=== PATIENT | female | born 1980 | race Caucasian/White ===

== ENCOUNTER 2017-01-05 18:36 | Emergency (ER) | payer MEDICAID ==
--- NOTE | 2017-02-05 21:25 | ER ---
ADMIT: 01/05/2017 RM/LOC: ER [facility] MR#: [id number] [id number] [place], [place] [address] JESUS MANUEL OSORIO [address] [place] [address] Emergency Room Report SEX: F AGE: 36 : 1980 DATE: 01/05/2017 CHIEF COMPLAINT: Toothache. HISTORY OF PRESENT ILLNESS: This is a pleasant 36-year-old female, who presents with right lower jaw pain for the past 2 days. The patient states she has a significant history of generalized tooth decay. She states last year she was seen in [facility] and had her entire upper maxillary teeth removed and replaced with prosthetics. The patient states over the past few days she has had increasing pain and swelling around her last remaining tooth on her lower right jaw. The patient sates this is worsened with heat, cold, and chewing. She believes this problem is getting worse. She has been using Excedrin and ibuprofen as needed with little relief in her pain. The patient states she is currently trying to get into see her dentist at [facility], but is having difficulty with the payment. The patient denies any fever, sore throat, runny nose, congestion, or cough. She does admit to some right-sided ear pain and ear ache. COURSE IN THE EMERGENCY ROOM: The patient was seen and examined her lower right tooth #30 had areas of exudates about the base as well as significant sensitivity to both manipulation of the gum as well as palpation of the jawline. There was no significant lymphadenopathy or evidence of extending infection. The patient overall appeared well. I did stress her the importance of getting into see her dentist to resolve this problem as soon as possible. She was provided with a script for [place] 3/325, 1 to 2 tablets p.o. every4 to 6 hours as needed for pain #10. She was also started on Augmentin 875 one tablet b.i.d. for 7 days as there was evidence of some infection about the tooth. Plan was discussed with the patient. The patient agreed to schedule appointment with dentist as soon as possible. She was stable at time of discharge. OTILIA Torres / Luis Manuel Wilcox MD / jamie JOB #: [id number] CC: Luis Manuel Wiclox MD, Attending Physician Geovnai Taylor MD, Family Physician
== END 2017-01-05 19:10 | disposition home or self-care (01) ==
LOC: ER 18:36
DX: K08.89 Other specified disorders of teeth and supporting structures (principal); Z88.2 Allergy status to sulfonamides; Z79.899 Other long term (current) drug therapy

== ENCOUNTER 2017-02-17 11:59 | Emergency (ER) | payer MEDICAID ==
--- NOTE | 2017-02-17 14:22 | ER ---
ADMIT: 02/17/2017 RM/LOC: ER [facility] MR#: [id number] [address] [facility] [address] [place], [place] [address] JESUS MANUEL OSORIO [address] [place] [address] Emergency Room Report SEX: F AGE: 36 : 1980 DATE: 02/17/2017 TIME: 1159 hours. Please refer to my T-sheet for complete H and P. Briefly, the patient is a 36-year-old who comes in with sore throat, chest discomfort, cough, nausea, kind of plethora of complaints. She rates it 6/10. It has been bothering her just today. PHYSICAL EXAMINATION: VITAL SIGNS: Blood pressure 108/70, pulse 75, respirations 16, temp 96.8, and sat 99%. GENERAL: She is in no acute distress. HEENT: Mild pharyngeal erythema. NECK: Soft, supple. No meningismus. LUNGS: Clear. HEART: Regular. ABDOMEN: Soft. SKIN: No rash. EMERGENCY DEPARTMENT COURSE: EKG was sinus rhythm, no hyperacute changes. Rate was 71. I had a long discussion with her, she is ready for discharge. ASSESSMENT: 1. Viral syndrome. 2. Nicotine abuse. PLAN: Fluids. Return if worse. Stop smoking. [id number]-[id number] Benadryl or Claritin. Follow up with Dr. Taylor. Jarett Willams MD/ jyotsnal JOB #: [id number] CC: Jarett Willams MD, Attending Physician Geovani Taylor MD, Family Physician
== END 2017-02-17 12:38 | disposition home or self-care (01) ==
LOC: ER 11:59
DX: B34.9 Viral infection, unspecified (principal); E03.9 Hypothyroidism, unspecified; F17.210 Nicotine dependence, cigarettes, uncomplicated; Z90.49 Acquired absence of other specified parts of digestive tract; Z90.710 Acquired absence of both cervix and uterus; Z90.89 Acquired absence of other organs

== ENCOUNTER 2017-03-16 16:56 | Emergency (ER) | payer MEDICAID ==
--- NOTE | 2017-03-19 13:14 | ER ---
ADMIT: 03/16/2017 RM/LOC: ER [facility] MR#: [id number] [address] [address] JESUS MANUEL OSORIO [address] [place] [address] Emergency Room Report SEX: F AGE: 36 : 1980 DATE: 03/16/2017 HISTORY OF PRESENT ILLNESS: The patient is a 36-year-old female, came to the ER with chief complaint of left 1st, 2nd, and 3rd finger numbness and tingling and mild weakness and pain since 5 a.m. this morning after waking up from sleep. The patient states the numbness and tingling radiates to the medial part of the forearm, and she had very similar symptoms in the other side on the right side before and was diagnosed with carpal tunnel and went through surgery. 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 The patient denies any numbness or tingling or weakness in other parts of the body. The patient denies any trauma or tick bite or any skin rashes. PHYSICAL EXAMINATION: HEAD AND NECK: Normal. CHEST: Clear. HEART: Normal heart sounds. ABDOMEN: Soft. Motor and sensory are grossly normal. Tinel test is positive. Phalen test is negative. X-ray did not show any bony spurs or abnormalities in the wrists. Considering the patient's risk factor, hypothyroidism, and repetitive hand movement and the presentation, carpal tunnel syndrome is at the top of our differentials. With diagnosis of left wrist pain, paresthesia, questionable left carpal tunnel syndrome, the patient was put on the left wrist brace and was given ibuprofen, the patient was advised to avoid extreme range of motion and also repetitive movement as much as possible and take anti-inflammatory medications and follow up with the primary care doctor. The patient was stable and discharged home. Frank Muñiz MD/ jamie JOB #: [id number] CC: Jarett Willams MD, Attending Physician Minor Cerda MD, Family Physician
== END 2017-03-16 20:23 | disposition home or self-care (01) ==
LOC: ER 16:56
DX: M25.532 Pain in left wrist (principal); R20.2 Paresthesia of skin; E03.9 Hypothyroidism, unspecified; F17.210 Nicotine dependence, cigarettes, uncomplicated; Z90.49 Acquired absence of other specified parts of digestive tract; Z79.899 Other long term (current) drug therapy

== ENCOUNTER 2017-06-22 05:02 | Emergency (ER) | payer MEDICAID ==
--- NOTE | 2017-06-25 05:18 | ER ---
ADMIT: 06/22/2017 RM/LOC: ER [facility] MR#: [id number] [id number] [place], [place] [address] JESUS MANUEL OSORIO [address] [place] [address] Emergency Room Report SEX: F AGE: 36 : 1980 DATE: 06/22/2017 ADDENDUM: A 36-year-old female, who comes into the ER for multiple complaints, comes in complaining of some pain in her neck and her forehead. She was seen for similar complaint a year ago and then again 2 weeks ago. She has had no injury. She reports to me that she was seen at Dr. 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 She states she is going to physical therapy to try to get her neck feeling better. She does not have any fevers, chills, nausea, vomiting, and no neurologic symptoms. On examination, she does have an area on her forehead that looks like it is slightly raised and almost appears like she has struck her forehead on something. She reports that her neck hurts to move, but when she is not paying attention, I do see her rotate her head [id number] without difficulty. I did give her a shot of Toradol here, 5 mg of Valium, and diphenhydramine. She is told that she needs to follow up with Dr. Rodriguez's office and continue seeing her physical therapist. DIAGNOSIS: Chronic neck pain. Tyrone Rodriguez MD/ jamie JOB #: [id number] CC: Tyrone Rodriguez MD, Attending Physician Doe Hernandez MD, Family Physician
== END 2017-06-22 06:02 | disposition home or self-care (01) ==
LOC: ER 05:02
DX: M54.2 Cervicalgia (principal); R22.0 Localized swelling, mass and lump, head; G89.29 Other chronic pain; E03.9 Hypothyroidism, unspecified; Z88.2 Allergy status to sulfonamides; Z90.710 Acquired absence of both cervix and uterus; Z98.890 Other specified postprocedural states